=== PATIENT | female | born 1980 | race African-American/Black ===

== ENCOUNTER 2020-05-30 14:18 | Emergency (ER) | payer BC, OTHER ==
[2020-06-02 12:26] LABS: SARS-CoV-2 N Gene Positive; SARS-CoV-2 S Gene Negative; SARS-CoV-2 by NAA Indeterminate (NotDetected); SARS-CoV-2 orf1ab Negative
[2020-06-02 12:27] LABS: SARS-CoV-2 MS2 Positive
== END 2020-05-30 14:38 | disposition home or self-care (01) ==
LOC: ERS 14:18
DX: Z20.828 Contact with and (suspected) exposure to other viral communicable diseases (principal)
CPT/HCPCS: 87635; 99283; U0003